=== PATIENT | female | born 1980 | race Caucasian/White ===

== ENCOUNTER → 2019-05-02 | Outpatient (CLI) | payer OTHER | LOC: MC.RAD 09:52 | DX: N63.11 Unspecified lump in the right breast, upper outer quadrant (principal) | CPT/HCPCS: G0279 ==

== ENCOUNTER → 2020-10-02 | Outpatient (CLI) | payer OTHER | LOC: COL.RAD 09-27 08:00 | DX: N83.201 Unspecified ovarian cyst, right side (principal) | CPT/HCPCS: J1200; Q9967 ==